=== PATIENT | female | born 1945 | race Caucasian/White ===

== ENCOUNTER 2018-07-24 10:35 | Emergency (ER) | payer BC, OTHER ==
[2018-07-24 10:42] VITALS: BP 151/90; PULSE 75; TEMP 97.8; BMI 28.3
--- NOTE | 2018-07-24 11:12 | PDOC ---
History of Present Illness - General Chief Complaint: Injury Stated Complaint: FALL Time Seen by Provider: 07/24/18 10:56 History Source: Patient Exam Limitations: No Limitations - History of Present Illness Initial Comments: 07/24/18 11:41 Patient is a 73-year-old female in no comorbidities, who presents to the emergency department today after a slip and fall in the parking lot at work yesterday. Patient states she slipped on black ice and fell and hit her head. Patient admits to brief loss of consciousness. She states that she also initially landed on her tailbone and then fell and hit her head. She states it hurts to sit. Denies numbness and tingling to extremity is, weakness to the extremities, bladder bowel incontinence, saddle anesthesia. Past History - Travel Traveled outside of the country in the last 30 days: No Close contact w/someone who was outside of country & ill: No - Past Medical History Allergies/Adverse Reactions: Allergies Allergy/AdvReac Type Severity Reaction Status Date / Time No Known Allergies Allergy Verified 07/24/18 10:40 COPD: No Diabetes: Yes HTN: Yes Seizures: Yes - Suicide/Smoking/Psychosocial Hx Smoking History: Never smoked Review of Systems - Review of Systems Able to Perform ROS?: Yes Comments:: 07/24/18 10:57 CONSTITUTIONAL: Absent: fever, chills, diaphoresis, generalized weakness, malaise, loss of appetite HEENT: Absent: rhinorrhea, nasal congestion, throat pain, throat swelling, difficulty swallowing, mouth swelling, ear pain, eye pain, visual Changes CARDIOVASCULAR: Absent: chest pain, loss of consciousness, palpitations, irregular heart rate, peripheral edema RESPIRATORY: Absent: cough, shortness of breath, dyspnea with exertion, orthopnea, wheezing, stridor, hemoptysis GASTROINTESTINAL: Absent: abdominal pain, abdominal distension, nausea, vomiting, diarrhea, constipation, melena, hematochezia GENITOURINARY: Absent: dysuria, frequency, urgency, hesitancy, hematuria, flank pain, genital pain MUSCULOSKELETAL: Present: pain to the tail bone Absent: myalgia, arthralgia, joint swelling SKIN: Absent: rash, itching, pallor HEMATOLOGIC/IMMUNOLOGIC: Absent: easy bleeding, easy bruising, lymphadenopathy, frequent infections ENDOCRINE: Absent: unexplained weight gain, unexplained weight loss, heat intolerance, cold intolerance NEUROLOGIC: Present: LOC Absent: headache, focal weakness or paresthesias, dizziness, unsteady gait, seizure, mental status changes, bladder or bowel incontinence PSYCHIATRIC: Absent: anxiety, depression, suicidal or homicidal ideation, hallucinations. Is the patient limited Slovenian proficient: No *Physical Exam - Vital Signs Last Vital Signs Temp Pulse Resp BP Pulse Ox 97.8 F 75 17 151/90 98 07/24/18 10:40 07/24/18 10:40 07/24/18 10:40 07/24/18 10:40 07/24/18 10:40 - Physical Exam Comments: 07/24/18 11:12 GENERAL: Well developed, well nourished. Awake and alert. No acute distress. HEENT: Normocephalic. No jones sign or racoon sign. No hemotympanum. PERRLA, EOMI. No conjunctival pallor. Sclera are non-icteric. Moist mucous membranes. Oropharynx is clear. NECK: Supple. Full ROM. No JVD. Carotid pulses 2+ and symmetric, without bruits. No thyromegaly. No lymphadenopathy. CARDIOVASCULAR: Regular rate and rhythm. No murmurs, rubs, or gallops. Distal pulses are 2+ and symmetric. PULMONARY: No evidence of respiratory distress. Lungs clear to auscultation bilaterally. No wheezing, rales or rhonchi. ABDOMINAL: Soft. Non-tender. Non-distended. No rebound or guarding. No organomegaly. Normoactive bowel sounds. MUSCULOSKELETAL TTP of the coccyx region Normal range of motion at all joints. No bony deformities or tenderness. No CVA tenderness. EXTREMITIES: No cyanosis. No clubbing. No edema. No calf tenderness. SKIN: Bruise present to occipital region of scalp. No hematoma noted. Warm and dry. Normal capillary refill. No rashes. No jaundice. NEUROLOGICAL: Alert, awake, appropriate. Cranial nerves 2-12 intact. No deficits to light touch and temperature in face, upper extremities and lower extremities. No motor deficits in the in face, upper extremities and lower extremities. Normoreflexic in the upper and lower extremities. Normal speech. Toes are down- going bilaterally. Gait is normal without ataxia. PSYCHIATRIC: Cooperative. Good eye contact. Appropriate mood and affect. Moderate Sedation - Procedure Monitoring Vital Signs: Procedure Monitoring Vital Signs Temperature 97.8 F 07/24/18 10:40 Pulse Rate 75 01/31/19 10:40 Respiratory Rate 17 07/24/18 10:40 Blood Pressure 151/90 07/24/18 10:40 O2 Sat by Pulse Oximetry (%) 98 07/24/18 10:40 Medical Decision Making - Medical Decision Making 07/24/18 13:04 Patient is a 71-year-old female who presents to the ER for evaluation after slip and fall on ice yesterday. On exam patient with bruise to the occipital region of her scalp. tenderness to palpation of the coccyx region. Normal neuro exam with no gross deficits. We'll obtain x-ray and head CT/neck CT given fall with loss of consciousness. Head CT, neck CT are grossly normal. No evidence of bleed or fracture. Coccyx x-ray is also negative. Discharge home with pain control. I discussed the physical exam findings, ancillary test results and final diagnoses with the patient. I answered all of the patient's questions. The patient was satisfied with the care received and felt comfortable with the discharge plan and treatment plan. The Patient agrees to follow up with the primary care physician/specialist within 24-72 hours. Return precautions were given. *DC/Admit/Observation/Transfer Diagnosis at time of Disposition: Fall Qualifiers: Encounter type: initial encounter Qualified Code(s): W19.XXXA - Unspecified fall, initial encounter Whiplash injuries Qualifiers: Encounter type: initial encounter Qualified Code(s): S13.4XXA - Sprain of ligaments of cervical spine, initial encounter - Discharge Dispostion Disposition: HOME Condition at time of disposition: Stable Decision to Admit order: No - Referrals Referrals: Stephane Sosa MD [Primary Care Provider] - - Patient Instructions Printed Discharge Instructions: DI for Closed Head Injury Additional Instructions: You fell yesterday Your CT scans of your neck and head showed no acute injury You may take Tylenol 650mg every 4 hours as needed for pain Follow up with your primary care doctor this week Return to the ED for worsening pain, nausea, vomiting, lightheadedness, or if you have any changes in your symptoms - Post Discharge Activity Forms/Work/School Notes: Back to Work
[2018-07-24] MEDS ORDERED: ACETAMINOPHEN 325 MG TABLET (FP) PO ONE (11:22)
[2018-07-24] MEDS ORDERED: ACETAMINOPHEN 325 MG TABLET (FP) ONE (11:24)
== END 2018-07-24 13:13 | disposition home or self-care (01) ==
LOC: JERFT 10:35
DX: S13.4XXA Sprain of ligaments of cervical spine, initial encounter (principal); R73.03 Prediabetes; I10 Essential (primary) hypertension; R56.9 Unspecified convulsions
CPT/HCPCS: 70450-TC; 72100-TC-FY; 72125-TC; 99281-25